=== PATIENT | male | born 1970 | race African-American/Black ===

== ENCOUNTER 2019-11-11 06:17 | Emergency (ER) | payer OTHER ==
[~2019-11-11] VITALS: Ht 165.1 cm; Wt 86.0 kg
[2019-11-11] MEDS ORDERED: NITROGLYCERIN 0.4MG TABLET SL SL PRN (06:45)
[2019-11-11] MEDS ORDERED: ASPIRIN 81MG TABLET PO ONE (06:45)
[2019-11-11] MEDS ORDERED: LORAZEPAM 1MG TABLET PO ONE (06:45)
[2019-11-11 08:24] LABS: BASOPHILS % 0.9 % (0.0-2.0); EOSINOPHILS % 2.4 % (0.0-5.0); HEMATOCRIT. 44.7 % (42.0-52.0); HEMOGLOBIN. 15.4 g/dL (14.0-18.0); LYMPHOCYTES % 27.4 % (20.0-50.0); MEAN CORPUSCULAR HEMOGLOBIN 33.3 pg (28.0-32.0); MEAN CORPUSCULAR VOLUME 96.5 fL (80.0-94.0); MEAN PLATELET VOLUME 7.9 fl (7.4-10.4); MONOCYTES % 8.5 % (2.0-8.0); NEUTROPHILS % 60.8 % (40.0-76.0); PLATELET 190 x1000/uL (130-400); RED BLOOD CELL COUNT 4.63 mill/uL (4.7-6.1); RED CELL DISTRIBUTION WIDTH 13.7 % (11.6-14.6)
[2019-11-11 08:33] LABS: CHLORIDE 109 mEq/L (98-107)
[2019-11-11 08:39] LABS: ETHANOL BLOOD < 10 mg/dL
[2019-11-11] MEDS ORDERED: DILTIAZEM HCL 120MG CAPSULE CD 24HR PO ONE (09:15)
[2019-11-11] MEDS ORDERED: DILTIAZEM HCL 5MG/ML 5ML VIAL IV ONE (09:15)
[2019-11-11 09:37] LABS: *BARBITURATES SCREEN URINE NEGATIVE (NEGATIVE); *BENZODIAZEPINES SCREEN URINE NEGATIVE (NEGATIVE); *COCAINE SCREEN URINE NEGATIVE (NEGATIVE)
[2019-11-11 09:39] LABS: *AMPHETAMINES SCREEN URINE NEGATIVE (NEGATIVE); CANNABINOID URINE SCREEN NEGATIVE (NEGATIVE); METHADONE URINE SCREEN NEGATIVE (NEGATIVE); OPIATES URINE SCREEN NEGATIVE (NEGATIVE); PHENCYCLIDINE URINE SCREEN NEGATIVE (NEGATIVE)
[2019-11-11] MEDS ORDERED: ENOXAPARIN 100MG/ML SYR SUBCUT ONE (10:00)
[2019-11-11 10:44] VITALS: BP 120/64
== END 2019-11-11 11:12 | disposition short-term general hospital (02) ==
LOC: EDBD 06:17 → ER 06:17
DX: I48.20 Chronic atrial fibrillation, unspecified (principal); I10 Essential (primary) hypertension; F17.210 Nicotine dependence, cigarettes, uncomplicated; Z71.6 Tobacco abuse counseling
CPT/HCPCS: 36415; 71045; 80053; 80305; 80320; 83880; 84484; 85025; 93005; 96372; 96374; 99291; 99406; J1650; J3490; G0480